=== PATIENT | male | born 2000 | race Caucasian/White ===

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

== ENCOUNTER → 2022-10-12 07:49 | Outpatient (CLI) | payer OTHER, SELFPAY ==
--- NOTE | ~2022-10-12 | MR_ITS ---
EXAMINATION: MR pituitary wo con DATE: 10/12/2022 08:27 INDICATION: Localized swelling, mass and lump. Suprasellar mass. TECHNIQUE: Magnetic resonance imaging (MRI) of the brain and brainstem was performed without intraven ous contrast. COMPARISON: Brain MRI 11/19/2021, 12/26/2018 FINDINGS: There is a 10 x 10 x 9 mm sellar and suprasellar mass that demonstrates increased T1-weight ed and T2-weighted signal intensity relative to aiken matter. The mass abuts the optic chiasm. There i s no acute ischemic infarct or intracranial hemorrhage. The ventricles are normal in size. There is m ucosal thickening in the paranasal sinuses. There are mucous retention cysts in left maxillary sinus. The orbits are normal. The mastoid air cells are normal. IMPRESSION: 1. Stable 10 mm suprasellar mass. The differential diagnosis includes pituitary macroadenoma, craniop haryngioma, and Rathke cleft cyst. Consider brain MRI without and with contrast. Reviewed, dictated and finalized at location E. IMPRESSION: 1. Stable 10 mm suprasellar mass. The differential diagnosis includes pituitary macroadenoma, craniopharyngioma, and Rathke cleft cyst. Consider brain MRI wit hout and with contrast.
== END ==
PROVIDERS: PCP Family Medicine; Visit Provider Family Medicine
DX: R22.0 Localized swelling, mass and lump, head (principal)
CPT/HCPCS: 70551

== ENCOUNTER 2025-03-28 10:32 | Emergency (ER) | payer OTHER, SELFPAY ==
--- OUTSIDE RECORDS SUMMARY | 2025-03-28 10:35 | XMS_ITS | Clinical Summary ---
Author Organization [facility] Address [address] [place] [id number] Care Team Providers Care Development Vice President Name Role Phone Lorraine Snyder MD Primary Care Provider + Allergies Active Allergy Reactions Criticality Noted Date Comments Pear Hives 10/23/2024 Shrimp Extract Hives 10/23/2024 Medications Minoxidil 5 % Foam 3 Active ketoconazole (NIZORAL) 2 % cream Active Clindamycin Phos-Benzoyl Perox (ONEXTON) 1.2-3.75 % Gel Activ e tretinoin (RETIN-A) 0.05 % creamIndication s:Acne vulgaris Apply topically nightly at bedtime. 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 Found after syncope. Has an MRI every 2-4 years. Grew slightly. Last performed at [facility]. 10 mm suprasellar mass in 2021, increased from 8 mm in 2019. Assessment & Plan (10/23/2024 12:07 PM CDT): Will obtain previous records from [facility] and order MRI as appropriate once received. Immunizations Immunization Administration Dates Next Due Hepatitis B 06/21/2004,07/10/2003,03/11/2003 ,01/09/2003 Hepatitis B Pediatric 2002 Hib (Generic) 06/21/2004,07/10/2003,03/11/2003 ,01/09/2003 MMR (Generic) 06/21/2004 Pneumococcal (Prevnar 13) 06/21/2004,01/09/2003 Polio Ipv (Generic) 12/29/2004,07/10/2003,2002 Tdap (Generic) 12/29/2004,07/10/2003,03/11/2003 ,01/09/2003 Varicella (Generic) 06/21/2004 Family History Medical History Relation Comments Sleep Apnea Father Hypertension Maternal Grandfather Diabetes Maternal Grandmother Hypertension Mother No Known Problems Paternal Grandfather Breast Cancer Paternal Grandmother Sleep Apnea Paternal Grandmother No Known Problems Sister Relation Status Comments Father Alive Maternal Grandfather Alive Maternal Grandmother Alive Mother Alive Paternal Grandfather Paternal Grandmother Alive Sister Alive Social History Tobacco Use Types Packs/Day Years Used Date Smoking Tobacco: Never Smokeless Tobacco: Never Tobacco Cessation:Counseling Given: No Alcohol Use Standard Drinks/Week Comments Yes 0 (1 standard drink = 0.6 oz pur e alcohol) occasional PHQ-2 Answer Date Recorded Patient Health Questionnaire-2 Score 0 10/23/2024 Sex and Gender Information Value Date Recorded Sex Assigned at Male 10/23/2024 11:17 AM CDT Legal Sex Male 1:08 PM CDT Gender Identity Male 10/23/2024 11:17 AM CDT Sexual Orientation Not on file Occupation Industry Job Start Date Job End Date Studying [employer] at [employer] Not on file Not on file Not on file Last Filed Vital Signs Vital Sign Reading Time Taken Comments Blood Pressure 123/84 10/23/2024 11:21 AM CDT Pulse 77 10/23/2024 11:21 AM CDT Temperature 36.4 C (97.5 F) 10/23/2024 11:21 AM CDT Respiratory Rate - - Oxygen Saturation 98% 10/23/2024 11:21 AM CDT Inhaled Oxygen Concentration - - Weight 73.9 kg (163 lb) 10/23/2024 11:21 AM CDT Height 182.9 cm (6') 10/23/2024 11:21 AM CDT Body Mass Index 22.11 10/23/2024 11:21 AM CDT Plan of Treatment Upcoming Encounters Date Type Department Care Team (Late st Contact Info) Description 10/26/2025 10:30 AM CDT Office Visit [facility] - [place] [address] [place] [address] Lorraine Snyder MD [address] [place], [place] [id number] Health Maintenance Due Date Last Done Comments HPV Vaccines (1 - Male 3-dose series) 2017 Meningococcal B Vaccine (1 of 2 - Standard) 2018 Hepatitis C 2020 DTaP, Tdap and Td Vaccines (1 - Tdap) 2021 12/29/2004, 07/10/2003, 03/11/2003, Additional history exists COVID-19 Vaccine (2 - season) 2024 09/21/2020 Influenza Adult (#1) 2024 Annual Physical 10/23/2025 10/23/2024 Hepatitis B Vaccines Completed 06/21/2004, 07/10/2003, 03/11/2003, Additional history exists Pneumococcal Vaccine: Pediatrics (0 to 5 Years) and At-Risk Patients (6 to 49 Years) Aged Out 06/21/2004, 01/09/2003 No longer eligibl e based on patient's age to complete this topic PHQ-2 (Physician [place]) Completed 10/23/2024 Hepatitis A Vaccines Aged Out No long er eligible based on patient's age to complete this topic Meningococcal Vaccine Aged Out No lucy adriano eligible based on patient's age to complete this topic RSV Immunizations Under 20 Months Aged Out No longer eligible based on patient's age to complete this topic Insurance [employer] [facility] Care Teams Development Vice President Relationship Specialty Start Date End Date Lorraine Snyder MD [address] [facility] [address] [place] [id number] PCP - General FAMILY PRACTICE 10/23/24
--- OUTSIDE RECORDS SUMMARY | 2025-03-28 10:37 | XMS_ITS | Clinical Summary ---
Author Organization [facility] Address [facility] [place] [address] Care Team Providers Care Plant Safety Leader Name Role Phone Mika Thakur MD Primary Care Provider [phone] Source Comments [facility],non-owned Affiliates and Associated Physician Practices is amultiple site organization consisting of ambulatory clinics and hospital sitesin [place], [place], [place] and [place]. This disclosure is being madepursuant to the Care Everywhere program and may not contain all information available regarding this patient. Last updated 17.[facility] Allergies Active Allergy Reactions Criticality Noted Date Comments Diphenhydramine Psychiatric Medium 05/23/2016 Penicillins Urticaria Medium 05/23/2016 Medications * Be aware that medications may not be up to date on this document. Alwaysverify current medications with the patient. albuterol HFA (PROAIR HFA) 108 (90 BASE) MCG/ACT inhalerIndicati ons:Medication refill Inhale 2 Puffs by mouth every 4 hours as needed for Shortness of Breath, Wheezing or Cough 1 Inhaler 1 201 7 Active Active Problems Problem Noted Date Diagnosed Date Syncope Family History Relation Name Status Comments Father Alive Mother Alive Social History Tobacco Use Types Packs/Day Years Used Date Smoking Tobacco: Never Smokeless Tobacco: Never Alcohol Use Standard Drinks/Week Comments No 0 (1 standard drink = 0.6 oz pur e alcohol) Sex and Gender Information Value Date Recorded Sex Assigned at Not on file 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 Gender Identity Not on file Sexual Orientation Not on file Last Filed Vital Signs Vital Sign Reading Time Taken Comments Blood Pressure 90/60 12/30/2016 3:58 PM CDT Pulse 56 12/30/2016 3:58 PM CDT Temperature 36.4 C (97.6 F) 12/30/2016 3:58 PM CDT Respiratory Rate 16 12/30/2016 3:58 PM CDT Oxygen Saturation 98% 12/30/2016 3:58 PM CDT Inhaled Oxygen Concentration - - Weight 57.6 kg (127 lb) 12/30/2016 3:58 PM CDT Height 170.2 cm (5' 7) 12/30/2016 3:58 PM CDT Body Mass Index 19.89 12/30/2016 3:58 PM CDT Plan of Treatment Health Maintenance Due Date Last Done Comments HIV SCREENING 2017 HPV VACCINE (1 - Male 3-dose series) 2017 MENINGOCOCCAL (Group B) VACC INE SHARED DECISION-MAKING (1 of 2 - Standard) 2018 HEPATITIS C SCREENING 11/02/2020 DTAP/TDAP/TD VACCINES (1 - Tdap) 2021 HEPATITIS B VACCINE (1 of 3 - 19+ 3-dose series) 2021 DEPRESSION SCREENING 04/02/2024 COVID-19 VACCINE (1 - 2024-2 6 season) 2024 INFLUENZA VACCINE (#1) 2024 ZOSTER VACCINE (1 of 2) 2052 HIB VACCINE Aged Out No longer eligi ble based on patient's age to complete this topic MENINGOCOCCAL GROUPS A/C/Y/W VACCINE Aged Out No longer eligible b ased on patient's age to complete this topic PNEUMOCOCCAL VACCINE Aged Out No long er eligible based on patient's age to complete [place] [address] JOSHUA ANTHEM Care Teams Plant Safety Leader Relationship Specialty Start Date End Date Mika Thakur MD [address] [facility], [phone] PCP - General Family Medicine 05/23/16
--- NOTE | 2025-03-28 10:38 | ED.GENADULT ---
HPI - General Adult General Chief complaint: Upper Respiratory Infection Stated complaint: Flu Like Time Seen by Provider: 03/28/25 10:38 Source: patient Mode of arrival: ambulatory Limitations: no limitations History of Present Illness HPI narrative: 24-year-old male patient presents to [facility] with complaints of sore throat that started yesterday along with fever, body aches and chills. Patient states mild nausea. Patient states he has also had a cough for about a month Related Data Home Medications ?Medication ?Instructions ?Recorded ?Confirmed ?Last Taken ?Type ketoconazole 2 % shampoo 1 applic topical DAILY 11/22/21 11/22/21 Unknown History tretinoin microspheres 0.06 % 1 applic topical DAILY 11/22/21 11/22/21 Unknown History topical gel with pump (Retin-A Micro Pump) Allergies Allergy/AdvReac Type Severity Reaction Status Date / Time penicillin G Allergy Unknown Unknown Verified 11/22/21 09:26 Sulfa (Sulfonamide Allergy Unknown Unknown Verified 11/22/21 09:26 Antibiotics) Review of Systems Review of Systems: CONSTITUTIONAL: positive fever, chills, or sweats. positive fatigue EYES: Denies visual changes, redness, or discharge. ENT: Denies rhinorrhea, congestion, positive sore throat, denies otalgia. CARDIOVASCULAR: Denies chest pain, palpitations, or edema. RESPIRATORY: positive cough , denies dyspnea. GASTROINTESTINAL: Denies abdominal pain, nausea, vomiting, or diarrhea. GENITOURINARY: Denies dysuria or hematuria. SKIN: Denies rash or itching. MUSCULOSKELETAL: Denies back pain, joint pain, or myalgia. NEUROLOGIC: Denies headache, numbness, or weakness. PSYCHIATRIC: Denies anxiety or depression. [facility], [facility] Past Medical History Medical History (Updated 03/28/25 @ 11:15 by Gwendolyn Mora APRN) No significant past medical history Comments At the time of my signature I agree with nursing past medical history, surgical, social, and family history. There is no relevant family history pertinent to the presenting complaint. Exam Narrative: GENERAL: Well-appearing, well-nourished, and in no acute distress. HEAD: Normocephalic, atraumatic. EYES: PERRLA and EOMI. ENT: Nares with erythema edema noted bilaterally, no rhinorrhea or epistaxis. Mucous membranes moist. posterior pharynx with slight erythema no tonsillar enlargement no exudates or lesions present. Bilateral TMs are clear no erythema or foreign bodies the canal. NECK: Supple. No lymphadenopathy CHEST: Clear to auscultation. No respiratory distress. HEART: Regular rate and rhythm. No murmur heard. Normal peripheral pulses. ABDOMEN: Soft, nontender, nondistended, normal active bowel sounds. EXTREMITIES: Normal range of motion. No edema. SKIN: Warm, dry, no rash. NEURO: No focal deficits. Alert and oriented x3. Course Course Level of Care: Express Care Visit Vital Signs Vital signs: Vital Signs Temperature 38.0 C H 03/28/25 10:57 Pulse Rate 102 H 03/28/25 10:57 Respiratory Rate 18 03/28/25 10:57 Blood Pressure 114/65 03/28/25 10:57 Pulse Oximetry 100 03/28/25 10:57 Oxygen Delivery Room Air 03/28/25 10:57 Temperature 38.0 C H 03/28/25 10:57 Pulse Rate 102 H 03/28/25 10:57 Respiratory Rate 18 03/28/25 10:57 Blood Pressure 114/65 03/28/25 10:57 Pulse Oximetry 100 03/28/25 10:57 Oxygen Delivery Room Air 03/28/25 10:57 Vital signs reviewed. MDM MDM Narrative Medical decision making narrative: Discussed with patient that his point of care test for strep today is positive. All other point of care testing today is negative. We will discharge him home with an oral antibiotic for positive strep. Patient can continue taking [id number] medications such as Tylenol and ibuprofen as needed for pain. Differential Diagnosis Differential Diagnosis: Differential diagnosis: Allergic rhinitis, chronic sinusitis, tonsillitis, acute sinusitis, infectious mononucleosis, seasonal influenza, pertussis, diphtheria, meningococcal disease, viral syndrome, viral bronchitis, RSV, COVID-19 Lab Data Labs: Lab Results 03/28/25 03/28/25 Range/Units 11:04 11:10 POC Influenza A Ag Pending POC Influenza B Ag Pending POC SARS CoV-2 Ag Pending POC Grp A Strep Screen Positive (Negative) Critical Care Time Critical Care Time Critical Care Time: No Discharge Plan Discharge Clinical Impression: Acute streptococcal pharyngitis Patient Disposition: Home Condition: Stable Instructions: Antibiotic Form, Strep Throat (ED) Additional Instructions: -Take the medication as prescribed. Throw away the toothbrush after 24hours of antibiotic. -Eat things that are easy to swallow, like tea or soup, or popsicles to suck on. You might not feel like eating or drinking, but it's important that you get enough liquids. -Oral rinses such as: Salt water gargles and/or may use topical anesthetic (eg. Chloraseptic spray) or lozenges to relieve dryness or throat pain). -Take Tylenol and ibuprofen as needed for pain and fever as directed. -Frequent hand washing or hand principal java developer is one of the best ways to prevent spread of infection. -Follow up with primary care provider in 2-3 days if condition is not improving or seek ER visit if you start breathing fast/has trouble breathing, is not drinking enough fluids, muffle voice, difficulty opening the mouth. Patient Language: E[place] Prescriptions: New azithromycin 500 mg tablet 500 mg PO DAILY 5 Days Qty: 5 0RF No Action cetirizine [Zyrtec] 10 mg tablet 10 mg PO DAILY Qty: 30 0RF fluticasone propionate [Flonase Allergy Relief] 50 mcg/actuation spray,suspension 1 spray NASAL DAILY Qty: 15.8 0RF Rx Instructions: administer into each nostril ketoconazole 2 % shampoo 1 applic TOPICAL DAILY Retin-A Micro Pump 0.06 % gel with pump 1 applic TOPICAL DAILY Follow-up/Referrals: Claudio,Lorraine Beavers MD [Primary Care Provider, Unknown] Time of Disposition: 11:14
[2025-03-28 10:57] VITALS: BP 114/65; PULSE 102; RESP 18; TEMP 38; O2SAT 100
[2025-03-28 11:06] LABS: EDSTREPNEGPOS1 Positive (Negative)
[2025-03-28 11:12] LABS: EDCOVIDSCREEN Negative (Negative); EDINFLUASCREEN Negative (Negative); EDINFLUBSCREEN Negative (Negative)
== END 2025-03-28 12:00 | disposition home or self-care (01) ==
PROVIDERS: Emergency Provider Nurse Practitioner Family; PCP Student in an Organized Health Care Education/Training Program
DX: J02.0 Streptococcal pharyngitis (principal); Z20.822 Contact with and (suspected) exposure to COVID-19
CPT/HCPCS: 87426; 87804; 87880; 99213; G0463